=== PATIENT | female | born 1975 | race Caucasian/White ===

== ENCOUNTER → 2020-07-26 11:15 | Outpatient (BNVA) | payer OTHER, SELFPAY | PROVIDERS: Family Provider Family Medicine; PCP Family Medicine; Visit Provider Obstetrics & Gynecology | DX: N89.8 Other specified noninflammatory disorders of vagina (principal); B96.89 Other specified bacterial agents as the cause of diseases classified elsewhere | CPT/HCPCS: 87070; 87205 ==

== ENCOUNTER 2020-08-22 09:43 | Outpatient (CLI) | payer OTHER, SELFPAY ==
--- NOTE | 2020-08-22 09:46 | MM_ITS ---
WS: [id number] SCREENING DIGITAL MAMMOGRAM WITH CAD HISTORY: SCREENING COMPARISON: None available. Bilateral CC and MLO views submitted. Computer aided detection analyzed. Breast composition: There are scattered areas of fibroglandular density. No suspicious masses, microc alcifications or architectural distortion. MM/[place] [id number] IMPRESSION: BI-RADS: 1-Negative FOLLOW UP: 1 Year Follow-up
== END 2020-08-22 09:44 | disposition home or self-care (01) ==
LOC: RADSHAW 09:45
PROVIDERS: PCP Family Medicine; Visit Provider Obstetrics & Gynecology
DX: Z12.31 Encounter for screening mammogram for malignant neoplasm of breast (principal)
CPT/HCPCS: 77067

== ENCOUNTER 2024-01-15 20:05 | Emergency (ER) | payer OTHER, SELFPAY ==
[2024-01-15 20:15] VITALS: BP 136/96; PULSE 85; RESP 14; TEMP 36.9; O2SAT 97
--- NOTE | 2024-01-15 20:20 | XRR_ITS ---
PROCEDURE INFORMATION: Exam: XR Right Hand Exam date and time: 01/15/2024 8:32 PM Age: 48 years old Clinical indication: Injury or trauma; Other: Smashed; Crushing; Hand; Right TECHNIQUE: Imaging protocol: Radiologic exam of the right hand. Views: 3 or more views. COMPARISON: No relevant prior studies available. FINDINGS: Bones/joints: No acute fracture or malalignment. Soft tissues: Unremarkable. XR/XR hand RT min 3V* [id number] IMPRESSION: No acute findings.
--- NOTE | 2024-01-15 20:30 | ED_ITS ---
HPI - Extremity Problem General: Chief complaint: Extremity Injury, Upper Stated complaint: injured Right hand Time Seen by Provider: 01/15/24 20:20 Source: patient Mode of arrival: ambulatory Limitations: no limitations History of Present Illness: 48-year-old female states she had smashe d her right hand and a metal cart just 30 minutes ago. She has bruising along with pain to the middle of her hand she rates her pain an 8 out of 10. She denies any wrist pain denies other injury she has no lacerations. Associated symptoms: Deny chest pain, fever(s) or rash Review of Systems Const: Denies: fever(s), chills, body aches or change in appetite ENMT: Denies: throat pain or dental pain Card: Denies: chest pain Resp: Denies: dyspnea GI: Denies: abdominal pain, nausea, vomiting or diarrhea Musc: Reports: extremity pain; Denies: neck pain or back pain Skin/Breast: Denies: rash Neuro: Denies: headache(s) PFSH ED PFSH: Medical History No pertinent past medical history Patient denies history of: diabetes, asthma, hypertension, seizures, DVT/PE PCP:Dr. Pierre Anxiety Diagnosed in her 30s and managed on as needed Xanax by her primary care provider. Surgical History History of D&C X3 for VIP last in 09/2015----> done for voluntary interruption of at [place]. Family History Denies family history of Colon cancer Ovarian cancer DVT (deep venous thrombosis) Breast cancer Pulmonary embolism Uterine cancer Social History Smoking and tobacco/nicotine status: current every day tobacco/nicotine user cigarettes Packs smoked per day: 0.5 Alcohol intake: current Alcohol intake frequency: holidays/special occasions only Substance/Drug Use: never Current gender identity: Female Physical Exam Const: COMMON NORMALS: no acute distress, patient oriented x3 and healthy appearing HENMT: COMMON NORMALS: normocephalic and atraumatic HEAD & SCALP: normocephalic and atraumatic Neck/C-Spine: COMMON NORMALS: full ROM and supple Chest: COMMONS NORMALS: normal inspection of the chest Resp: COMMON NORMALS: normal respiratory effort Extremity: COMMON NORMALS: full ROM NARRATIVE EXTREMITY EXAM: Contusion swelling to right hand with tenderness no lacerations Neuro: COMMON NORMALS: patient oriented x3, moves all extremities and no focal motor deficits Psych: COMMON NORMALS: mental status grossly normal, Normal thought process present and cooperative THOUGHT PROCESS: Normal thought process present Skin: COMMON NORMALS: no rashes or lesions noted and no wounds GENERAL SKIN EXAM: no rashes or lesions noted Course Vital Signs: Vital signs: Vital Signs Temperature 98.5 F 01/15/24 20:15 Pulse Rate 85 01/15/24 20:15 Respiratory Rate 14 01/15/24 20:15 Blood Pressure 136/96 01/15/24 20:15 Pulse Oximetry 97 01/15/24 20:15 MDM - Extremity (Nontraumatic) Medical Decision Making Patient presents with a right hand contusion x-ray shows no fracture patient stable for discharge she is follow-up with PCP and return if worsening. Medical Records I reviewed the patient's medical records. Lab Data Radiology Impressions Hand X-Ray 01/15/24 20:20 IMPRESSION: No acute findings. All radiology interpretation(s) finalized by discharge Discharge Plan Discharge Patient Disposition: Home Clinical Impression: Contusion of hand, right Condition: Stable Prescriptions: No Action valacyclovir 1 gram tablet 1,000 mg PO TID 7 Days Qty: 21 0RF triamcinolone acetonide 0.1 % cream 1 applic topical TID Qty: 80 0RF Mirena 20 mcg/24 hours (5 yrs) 52 mg intrauterine device INTRAUTERI alprazolam [Xanax] 0.5 mg tablet 0.5 mg PO BID PRN (Reason: anxiety) 30 Days Qty: 60 0RF Discharge Orders: Discharge ED (Routine); Ordered 01/15/24 Ordered By: Little Medrano Referrals: Emmy Pierre DO [Primary Care Provider] - 4-7 days Discharge Diet: Advance as tolerated Discharge Activity: Resume usual activity Patient Instructions: Contusion in Adults (ED) Coding Level of Care Code ED Power Regulator for Naomi Slade
[2024-01-15 21:28] VITALS: BP 137/85; PULSE 79; RESP 16; TEMP 36.4; O2SAT 97
[2024-01-15 21:30] VITALS: BP 137/85; PULSE 79; RESP 16; TEMP 36.4; O2SAT 97
== END 2024-01-15 21:31 | disposition home or self-care (01) ==
PROVIDERS: Emergency Provider Emergency Medicine; PCP Family Medicine
DX: S60.221A Contusion of right hand, initial encounter (principal); F17.210 Nicotine dependence, cigarettes, uncomplicated; W23.0XXA Caught, crushed, jammed, or pinched between moving objects, initial encounter; Y99.0 Civilian activity done for income or pay
CPT/HCPCS: 73130; 99283

== ENCOUNTER → 2024-03-25 07:45 | Outpatient (BNVA) | payer OTHER, SELFPAY | PROVIDERS: PCP Nurse Practitioner Family; Visit Provider Nurse Practitioner | DX: M79.641 Pain in right hand (principal) | CPT/HCPCS: 73130 ==

== ENCOUNTER → 2024-04-08 10:24 | Outpatient (BNVA) | payer OTHER, SELFPAY | PROVIDERS: PCP Nurse Practitioner Family; Visit Provider Obstetrics & Gynecology | DX: Z01.419 Encounter for gynecological examination (general) (routine) without abnormal findings (principal) | CPT/HCPCS: 80053; 84443; 85025; 87624 ==

== ENCOUNTER 2024-04-14 15:40 | Outpatient (CLI) | payer OTHER, SELFPAY ==
--- NOTE | 2024-04-14 16:00 | MR_ITS ---
WS: [id number] MRI RIGHT HAND CONTRAST. COMPARISON: Radiograph 03/25/2024 Multiplanar, multisequence imaging is performed without contrast. No acute fractures or marrow edema. No bone contusion. Normal alignment at the metacarpophalangeal albert ints and the interphalangeal joints. Very minimal residual soft tissue edema from the contusion betwe en the second and third distal metacarpals. No fred abnormalities are along the phalanges. MR/MR hand RT wo con* [id number] IMPRESSION: 1. No fractures or marrow edema. 2. Minimal residual soft tissue contusion between the second and third metacar pals.
== END 2024-04-14 15:41 | disposition home or self-care (01) ==
LOC: RAD 15:41
PROVIDERS: PCP Nurse Practitioner Family; Visit Provider Nurse Practitioner
DX: S69.91XA Unspecified injury of right wrist, hand and finger(s), initial encounter (principal); X58.XXXA Exposure to other specified factors, initial encounter
CPT/HCPCS: 73218

== ENCOUNTER → 2024-04-21 12:22 | Outpatient (BNVA) | payer OTHER, SELFPAY | PROVIDERS: PCP Nurse Practitioner Family; Visit Provider Obstetrics & Gynecology | DX: Z30.430 Encounter for insertion of intrauterine contraceptive device (principal); N88.8 Other specified noninflammatory disorders of cervix uteri; Z97.5 Presence of (intrauterine) contraceptive device | CPT/HCPCS: 76830 ==

== ENCOUNTER 2024-10-01 17:56 | Emergency (ER) | payer OTHER, SELFPAY ==
[2024-10-01 17:58] VITALS: BP 159/96; PULSE 94; TEMP 36.3; O2SAT 97; BMI 22.6
--- NOTE | 2024-10-01 18:23 | XRR_ITS ---
PROCEDURE INFORMATION: Exam: XR Chest Exam date and time: 10/01/2024 6:36 PM Age: 49 years old Clinical indication: Pain; Chest pressure; Additional info: Chest pain TECHNIQUE: Imaging protocol: Radiologic exam of the chest. Views: 1 view. COMPARISON: No relevant prior studies available. FINDINGS: Lungs: Unremarkable. No consolidation. Pleural spaces: Unremarkable. No pleural effusion. No pneumothorax. Heart/Mediastinum: Unremarkable. No cardiomegaly. Bones/joints: Unremarkable. XR/XR chest 1V portable [id number] IMPRESSION: No acute findings.
--- NOTE | 2024-10-01 18:23 | ECG_ITS ---
[facility] Date: 2024-10-01 Pat Name: Bhargavi Kamara Department: Room: Gender: Female Head Correction Officer: : 1975 Requested By: Adrianne Schaefer Order Number: [id number] Wilfrid MD: Gideon Patel M.D. Measurements Intervals [place] Rate: 93 P: 71 IL: 165 QRS: 72 QRSD: 86 T: 58 QT: 335 QTc: 418 Interpretive Statements SINUS RHYTHM POSSIBLE LEFT ATRIAL ENLARGEMENT [-0.1mV P-WAVE IN V1/V2] No previous ECG available for comparison Electronically Signed On 10-03-2024 18:20:09 CDT by Gideon Patel M.D. [id number]
[2024-10-01 18:50] LABS: Basophils # 0.1 10^3/uL (0.0-0.1); Basophils % 1.1 %; Eosinophils # 0.2 10^3/uL (0.0-0.8); Eosinophils % 2.2 %; Hematocrit 46.3 % (36-47); Lymphocytes % 33.8 %; Mean Corpuscular HGB Conc 32.4 g/dL (30-55); Mean Corpuscular Hemoglobin 29.2 pg (27-33); Mean Corpuscular Volume 90.1 fl (85-98); Mean Platelet Volume 9.4 fL (7.4-10.4); Monocytes # 0.7 10^3/uL (0.2-0.9); Monocytes % 7.4 %; Neutrophils # 4.84 10^3/uL (1.8-7.7); Neutrophils % 55.2 %; Nucleated Red Blood Cells % 0 %; Platelet Count 268 10^3/cmm (157-399); Red Blood Count 5.14 10^6/uL (3.85-5.65); Red Cell Distribution Width 13.2 % (12.1-15.1); White Blood Count 8.78 10^3/uL (3.29-11.43)
[2024-10-01 19:04] LABS: Troponin(5th) Baseline < 6 ng/L (0-10)
[2024-10-01 19:06] LABS: Alanine Aminotransferase 20 U/L (0-33); Albumin Level 4.4 g/dL (3.5-5.2); Alkaline Phosphatase 58 U/L (35-105); Anion Gap 15.1 (5-19); Aspartate Amino Transferase 20 U/L (0-32); Blood Urea Nitrogen 8 mg/dL (6-20); Calcium 9.3 mg/dL (8.5-10.5); Carbon Dioxide 27 mmol/L (22-29); Chloride 103 mmol/L (98-107); Globulin 2.2 g/dL (1.3-4.6); Glomerular Filtration Rate 89.3 mL/min (90-130); Glucose 80 mg/dL (65-115); Lipase 34 U/L (13-60); Osmolality Calculated 289 mOsm/kg (285-295); Potassium 4.1 mmol/L (3.5-5.1); Sodium 141 mmol/L (136-145); Total Bilirubin 0.4 mg/dL (0.15-1.2); Total Protein 6.6 g/dL (6.6-8.7)
--- NOTE | 2024-10-01 20:23 | ECG_ITS ---
[facility]: 2024-[facility]01 Pat Name: Bhargavi Kamara Department: Room: Gender: Female Sales Mgr: : 1975 Requested By: Adrianne Schaefer Order Number: [id number] Reading MD: MARY TALBOT Measurements Intervals [place] Rate: 70 P: 69 [place]: 162 QRS: 57 QRSD: 86 T: 57 QT: 389 QTc: 421 Interpretive Statements SINUS RHYTHM Compared to ECG 10/01/2024 18:01:51 No significant changes Electronically Signed On 10-04-2024 22:03:29 CDT by MARY TALBOT [id number] [id number]
--- NOTE | 2024-10-01 21:08 | W.ED.CHESTPA ---
HPI - Chest Pain General: Chief Complaint: Chest Pain Stated Complaint: cp/sob Time Seen by Provider: 10/01/24 18:24 Source: patient Mode of arrival: ambulatory Limitations: no limitations History of Present Illness: Patient is a 49-year-old female who presents today with complaints of intermittent episodes of racing heart rate and left-sided chest pain. She notes that this has been present for a couple days. She cannot identify any alleviating or worsening factors to her symptoms. During episodes, she has recorded heart rates up to the 140s and during those. She feels short of breath with chest pain. The symptoms completely alleviate when her heart rate comes back down. Upon arrival to the emergency department and during my initial assessment with patient her heart rate is in the 80s. Denies syncope/dizziness, abdominal pain, nausea, or vomiting. She is not complaining of any leg swelling or calf pain. Denies any drug use. No new medications. States she has stopped all caffeine use thinking this may help with her symptoms but has not. MD complaint: chest pain and other (racing heart rate) Onset (ago): day(s) Timing of current episode: episodic Onset: during rest Pain location: left chest Pain radiation: none Severity: mild Quality: tightness and dull Relieving factors: nothing Exacerbating factors: nothing Associated symptoms: Reports dyspnea (only during episodes of racing heart rate) and palpitations (feeling like heart is racing/beating fast); Deny abdominal pain, diaphoresis, fever(s), nausea, syncope or vomiting Treatment prior to arrival: none Risk Factors: Coronary artery disease risk factors: smoking history Thoracic aortic dissection risk factors: none Related Data Home Medications ?Medication ?Instructions ?Recorded ?Confirmed levonorgestrel (Mirena) intrauterine 03/09/20 05/15/24 Allergies Allergy/AdvReac Type Severity Reaction Status Date / Time penicillin G Allergy Unknown Rash Verified 10/01/24 18:06 Review of Systems Const: Denies: fever(s), chills or diaphoresis Eyes: Denies: change in vision ENMT: Denies: throat pain Card: Reports: chest pain and palpitations (feeling like heart is racing/beating fast); Denies: irregular heart rhythm, edema, swelling of feet/ankles, lightheadedness, syncope, pre-syncope, dyspnea on exertion, orthopnea, leg pain with exertion or acrocyanosis Resp: Reports: dyspnea (only during episodes of racing heart rate); Denies: wheezing or chest congestion GI: Denies: abdominal pain, nausea, vomiting or hematemesis : Denies: flank pain Musc: Denies: neck pain, back pain, extremity pain or extremity swelling Neuro: Denies: headache(s), numbness in extremities, weakness in extremities, sensory changes, lack of coordination, difficulty walking or dizziness Psych: Reports: anxiety and panic attacks PFSH ED PFSH: Medical History Lateral epicondylitis of right elbow Pain, joint, hand, right Right hand weakness Muscle strain of right upper extremity No pertinent past medical history Patient denies history of: diabetes, asthma, hypertension, seizures, DVT/PE PCP:Dr. Ignacio Mckeon Diagnosed in her 30s and managed on as needed Xanax by her primary care provider. Surgical History History of D&C X3 for VIP last in 09/2015----> done for voluntary interruption of at [place]. Family History Denies family history of Colon cancer Ovarian cancer DVT (deep venous thrombosis) Breast cancer Pulmonary embolism Uterine cancer Social History Smoking and tobacco/nicotine status: current every day tobacco/nicotine user Physical Exam Const: COMMON NORMALS: no acute distress, average body habitus, patient oriented x3, no limitations, healthy appearing, alert and well nourished GENERAL APPEARANCE: cooperative and anxious; not in distress and not diaphoretic Neck/C-Spine: COMMON NORMALS: no JVD Chest: COMMONS NORMALS: normal inspection of the chest and normal palpation of entire chest wall Resp: COMMON NORMALS: normal respiratory effort and clear to auscultation bilaterally AUSCULTATION: clear to auscultation bilaterally Cardio: COMMON NORMALS: no JVD, regular rate and regular rhythm RATE: regular rate RHYTHM: regular rhythm GI: COMMON NORMALS: Normal to inspection, nondistended, normoactive bowel sounds present, Soft to palpation and non-tender PALPATION: Yes Soft to palpation Extremity: COMMON NORMALS: no clubbing, cyanosis or edema, no calf tenderness and no pedal edema GENERAL: Yes normal exam except as noted Neuro: COMMON NORMALS: patient oriented x3 SENSORIUM/ORIENTATION: Yes alert Course Vital Signs: Vital signs: Vital Signs Temperature 97.4 F L 10/01/24 17:58 Pulse Rate 94 10/01/24 17:58 Blood Pressure 159/96 10/01/24 17:58 Pulse Oximetry 97 10/01/24 17:58 Oxygen Delivery Me thod Room Air 10/01/24 17:58 MDM - Chest Pain Medical Decision Making Patient clinically appears no acute distress. Her vital signs are stable. Pulse has been normal during her entire ER stay. Her baseline and repeat EKGs showing normal sinus rhythm. Her baseline and 2-hour troponins are unremarkable. Remainder of blood work is unremarkable. Patient will be set up with an outpatient Holter monitor and recommend follow-up with her primary care provider which she already has a scheduled appointment for later this month. Return to ED precautions discussed. Medical Records I reviewed the patient's medical records. Lab Data I reviewed the patient's lab results. 10/01/24 18:37 10/01/24 18:37 Radiology Impressions Chest X-Ray 10/01/24 18:23 IMPRESSION: No acute findings. Laboratory Results WBC 8.78 10^3/uL (3.29-11.43) 10/01/24 18:37 RBC 5.14 10^6/uL (3.85-5.65) 10/01/24 18:37 Hgb 15.00 g/dL (11.27-16.99) 10/01/24 18:37 Hct 46.3 % (36-47) 10/01/24 18:37 MCV 90.1 fl (85-98) 10/01/24 18:37 MCH 29.2 pg (27-33) 10/01/24 18:37 MCHC 32.4 g/dL (30-55) 10/01/24 18:37 RDW 13.2 % (12.1-15.1) 10/01/24 18:37 Plt Count 268 10^3/cmm (157-399) 10/01/24 18:37 MPV 9.4 fL (7.4-10.4) 10/01/24 18:37 Neut % (Auto) 55.2 % 10/01/24 18:37 Lymph % (Auto) 33.8 % 10/01/24 18:37 [place] % (Auto) 7.4 % 10/01/24 18:37 Eos % (Auto) 2.2 % 10/01/24 18:37 Baso % (Auto) 1.1 % 10/01/24 18:37 Neut # (Auto) 4.84 10^3/uL (1.8-7.7) 10/01/24 18:37 Lymph # (Auto) 3.0 10^3/uL (0.8-4.8) 10/01/24 18:37 [place] # (Auto) 0.7 10^3/uL (0.2-0.9) 10/01/24 18:37 Eos # (Auto) 0.2 10^3/uL (0.0-0.8) 10/01/24 18:37 Baso # (Auto) 0.1 10^3/uL (0.0-0.1) 10/01/24 18:37 Nucleated RBC % (auto) 0 % 10/01/24 18:37 Nucleated RBCs # 0.0 /100WBC 10/01/24 18:37 Sodium 141 mmol/L (136-145) 10/01/24 18:37 Potassium 4.1 mmol/L (3.5-5.1) 10/01/24 18:37 Chloride 103 mmol/L (98-107) 10/01/24 18:37 Carbon Dioxide 27 mmol/L (22-29) 10/01/24 18:37 Anion Gap 15.1 (5-19) 10/01/24 18:37 BUN 8 mg/dL (6-20) 10/01/24 18:37 Creatinine 0.7 mg/dL (0.5-0.9) 10/01/24 18:37 GFR Calculation 89.3 mL/min (90-130) L 10/01/24 18:37 Glucose 80 mg/dL (65-115) 10/01/24 18:37 Calculated Osmolality 289 mOsm/kg (285-295) 10/01/24 18:37 Calcium 9.3 mg/dL (8.5-10.5) 10/01/24 18:37 Total Bilirubin 0.4 mg/dL (0.15-1.2) 10/01/24 18:37 AST 20 U/L (0-32) 10/01/24 18:37 ALT 20 U/L (0-33) 10/01/24 18:37 Alkaline Phosphatase 58 U/L (35-105) 10/01/24 18:37 Troponin T Baseline < 6 ng/L (0-10) 10/01/24 18:37 Troponin T 120 Minute 6.00 ng/L (0-10) 10/01/24 21:00 Delta Troponin T 0.11982 ABS# (0-10) 10/01/24 21:00 Total Protein 6.6 g/dL (6.6-8.7) 10/01/24 18:37 Albumin 4.4 g/dL (3.5-5.2) 10/01/24 18:37 Globulin 2.2 g/dL (1.3-4.6) 10/01/24 18:37 Lipase 34 U/L (13-60) 10/01/24 18:37 All radiology interpretation(s) finalized by discharge Discharge Plan Discharge Patient Disposition: Home Clinical Impression: Intermittent chest pain, Paroxysmal tachycardia Condition: Stable Prescriptions: No Action Mirena 20 mcg/24 hours (5 yrs) 52 mg intrauterine device INTRAUTERI Discharge Orders: Discharge ED (Routine); Ordered 10/01/24 Ordered By: Adrianne Schaefer Referrals: Margie Rollins NP [Primary Care Provider] - Activity Restrictions/Additional Instructions: As we discussed, case management or the [facility] should reach out to you tomorrow or early next week to help set you up with a Holter monitor for further evaluation of symptoms. Please continue to follow-up with primary care as scheduled. He may return to the emergency department at anytime for worsening episodes of racing heart rate, palpitations, shortness of breath, difficulty breathing, dizziness or passing out episodes, or any other concerns you may have. Print Language: Australian Coding Level of Care Code ED Battery Starter for Naomi Slade
[2024-10-01 21:38] LABS: Troponin 5 2HR Delta 0.00001 ABS# (0-10)
[2024-10-01 22:11] VITALS: BP 141/93; PULSE 85; RESP 16; O2SAT 96
--- NOTE | 2024-10-02 07:33 | DCPLANNER ---
messaged heart care for er f/u
== END 2024-10-01 22:12 | disposition home or self-care (01) ==
PROVIDERS: Emergency Provider Physician Assistant; PCP Nurse Practitioner Family
DX: R07.89 Other chest pain (principal); I47.9 Paroxysmal tachycardia, unspecified; Z72.0 Tobacco use
CPT/HCPCS: 36415; 71045; 80053; 83690; 84484; 85025; 93005; 99285

== ENCOUNTER 2024-10-21 13:11 | Outpatient (CLI) | payer OTHER, SELFPAY ==
--- NOTE | 2024-10-21 13:20 | MM_ITS ---
WS: [id number] BILATERAL 3D TOMOSYNTHESIS DIGITAL SCREENING MAMMOGRAPHY WITH CAD CLINICAL INFORMATION: screening HISTORY: Screening mammogram. No current complaints. COMPARISON: 2020 TECHNIQUE: Bilateral CC and MLO views. FINDINGS: The breasts are composed of heterogeneous fibroglandular density tissue, which can limit the detection of small underlying mass lesions. No suspicious mass, asymmetry, calcifications, or architectural distortion. No evidence of malignancy. MM/MM scr tomosynthesis [id number] IMPRESSION: DENSITY: The breasts are heterogeneously dense, which may obscure small masses. BI-RADS: 1 - Negative FOLLOW UP: 1 Year Follow-up Recommend return to annual screening mammography.
== END 2024-10-21 13:12 | disposition home or self-care (01) ==
PROVIDERS: PCP Family Medicine; Visit Provider Family Medicine
DX: Z12.31 Encounter for screening mammogram for malignant neoplasm of breast (principal); R92.333 Mammographic heterogeneous density, bilateral breasts
CPT/HCPCS: 77063; 77067

== ENCOUNTER → 2025-04-05 13:03 | Outpatient (BNVA) | payer OTHER, SELFPAY | PROVIDERS: PCP Family Medicine; Visit Provider Nurse Practitioner | DX: Z01.818 Encounter for other preprocedural examination (principal) | CPT/HCPCS: 36415; 80053; 81001; 85025 ==

== ENCOUNTER 2025-04-27 09:40 | Day surgery (SDC) | payer OTHER, SELFPAY ==
[2025-04-27] VITALS (10 sets, daily range): BP systolic 112–133; BP diastolic 72–91; PULSE 52–63; RESP 16–18; TEMP 36.1–36.4; O2SAT 94–98; BMI 23.5
[2025-04-27 09:54] LABS: OR HCG Qualitative Urine Negative (Negative)
[2025-04-27] MEDS: acetaminophen 1,000 MG/100 ML PIGGYBACK 400 MG IV (10:06)
--- NOTE | 2025-04-27 10:27 | P.HPUD_ITS ---
Surgery/Procedure H&P Update DATE OF PROCEDURE: April 27, 2025 DATE H&P PERFORMED: 04/05/25 H&P UPDATE INFORMATION: I have reviewed H&P completed within last 30 days, I have examined patient prior to procedure, No changes to prior documentation, H&P is in [facility] EMR on date indicated and Risks and benefits of the procedure reviewed PLANNED PROCEDURE: Operation Date: 04/27/25 13:00 Proposed Procedures p Carpal Tunnel Release(Right) - Oralia Ambrose MD Related Problem List Diagnoses 1. Carpal tunnel syndrome on right:
--- NOTE | 2025-04-27 10:32 | ANES.PREANE2 ---
Pre-Anesthetic Assessment Height/Weight: Height 1.63 m Weight 62.142 kg Temp Pulse Resp BP Pulse Ox O2 Del Method 97.0 F L 52 L 18 116/76 98 Room Air 04/27/25 09:55 04/27/25 09:55 04/27/25 09:55 04/27/25 09:55 04/27/25 09:55 04/27/25 09:55 Operation Date: 04/27/25 13:00 Proposed Procedures p Carpal Tunnel Release(Right) - Oralia Ambrose MD Familial anesthetic complications: None Was Beta Zafar taken within 24 hours: N/A Was Clonidine taken within 24 hours: N/A Last intake: Intake Last Liquid Date 04/26/25 Last Liquid Time 23:30 Last Solid Date 04/26/25 Last Solid Time 23:30 Social Alcohol (occassional) and Tobacco Exam alert, oriented x 3, clear to auscultation bilaterally and regular rate & rhythm Airway Mallampati: Class I Dentition: other (some missing) CV/HEM Hypertension Anesthetic Plan ASA status: 2 Anesthesia: General Risk of > 500 ml blood loss (7ml/kg in children): No Medications/Allergies Home Medications ?Medication ?Instructions ?Recorded ?Confirmed ?Last Taken ?Type levonorgestrel (Mirena) intrauterine 03/09/20 04/05/25 04/26/25 10:00 History alprazolam 0.5 mg tablet (Xanax) 0.5 mg PO DAILY PRN anxiety #30 10/19/24 04/26/25 04/26/25 10:00 Rx tabs celecoxib 100 mg capsule (Celebrex) 100 mg PO BID #180 caps 01/11/25 04/26/25 04/26/25 10:00 Rx escitalopram oxalate 10 mg tablet 10 mg PO DAILY #90 tabs 02/02/25 04/26/25 04/26/25 10:00 Rx metoprolol succinate 25 mg 12.5 mg (1/2 x 25 mg) PO BID #90 02/02/25 04/26/25 04/26/25 10:00 Rx tablet,extended release 24 hr tabs Allergies Allergy/AdvReac Type Severity Reaction Status Date / Time penicillin G Allergy Unknown Rash Verified 04/27/25 09:49 Current Medications Generic Name Dose Route Start Last Admin Trade Name Freq PRN Reason Stop Dose Admin Sodium Chloride 1,000 mls @ 30 mls/hr 04/27/25 09:45 04/27/25 10:05 Sodium Chloride 0.9% IV 04/28/25 09:44 30 mls/hr .Q24H MARCELO Administration PFSH Anesthesia Medical History (Updated 04/27/25 @ 10:29 by Oralia Ambrose MD) Lateral epicondylitis of right elbow Pain, joint, hand, right Right hand weakness Muscle strain of right upper extremity No pertinent past medical history Patient denies history of: diabetes, asthma, hypertension, seizures, DVT/PE PCP:Dr. Pierre Anxiety Diagnosed in her 30s and managed on as needed Xanax by her primary care provider. Surgical History History of D&C X3 for VIP last in 09/2015----> done for voluntary interruption of at [place]. Family History Denies family history of Colon cancer Ovarian cancer DVT (deep venous thrombosis) Breast cancer Pulmonary embolism Uterine cancer Social History Smoking and tobacco/nicotine status: current every day tobacco/nicotine user Data Anesthesia Cardiac Studies: Holter Monitor 10/06/24
[2025-04-27] MEDS: ceFAZolin 2,000 mg SDV 2000 MG IVP (12:12)
[2025-04-27] MEDS: BUPivacaine 0.5% INJ 30 mL INJECTION (12:50)
[2025-04-27] MEDS: HYDROcodone-acetaminophen 5-325 mg Tablet 1 TAB PO (13:46)
--- NOTE | 2025-04-27 14:20 | ANE.PACU2 ---
Inpatient post-anesthesia follow up: Airway intact: Yes Vital signs: Temperature 97.5 F Pulse Rate 55 Respiratory Rate 18 Blood Pressure 130/82 Pulse Oximetry 98 Oxygen Delivery Me thod Room Air Oxygen Flow Rate 8 Fraction of Inspir ed Oxygen Hydration adequate: Yes Nausea and vomiting: No Pain level: 1 Mental status: Baseline
--- NOTE | 2025-04-28 13:45 | PM.OP ---
Operative Report Date of procedure: April 27, 2025 Pre-op diagnosis: Right carpal tunnel syndrome Post-op diagnosis: Right carpal tunnel syndrome Post-op findings: Significant compression across the carpal canal with compression across the median nerve Procedure done: Right carpal tunnel release Implants: None Specimens removed/disposition: None Surgeon: Oralia Ambrose MD Towel Rolling Machine Operator: None Estimated blood loss (mL): 2 Tourniquet time (min): 18 (At 250 mmHg) IV fluids (mL): 700 Urine output (mL): 0 (No Byrnes) Complications: None Findings: Tight carpal canal with significant compression across the median nerve Condition: stable Disposition: PACU (Then return to same-day surgery for discharge to home) Brief History: This 50-year-old woman presented today for same-day carpal tunnel release. She has been seen in the clinic and nerve conduction studies confirmed entrapment of the right median nerve at the wrist. There was no radiculopathy noted. The patient was unresponsive to nonoperative measures. She had significant symptoms and difficulty with activities of daily living. For this reason, she was scheduled for a right carpal tunnel release. Procedure: The patient was brought to the operating theater. The patient had a general anesthesia per LMA. ASA 2. The tourniquet was elevated to 250 mmHg for a total tourniquet time of 18 minutes. The patient was also given Ancef 2gm preoperatively. The arm was then prepped and draped with DuraPrep in usual fashion with the arm draped free. A surgical pause was performed. At the time, the surgical pause, we confirmed the site and side of surgery. We also confirmed the patient's identity, appropriate and timely administration of preoperative antibiotics and preoperative surgical markings. An incision was then made along the thenar crease. The incision crossed the wrist joint in a curvilinear fashion. Dissection continued through skin and soft tissues using a scalpel. The palmaris longus was identified along with the transverse carpal ligament. Each of these was released carefully to avoid injury to the median nerve. We were able to dissect gently into the carpal canal which was noted to be quite tight with significant compression across the median nerve. The nerve was visualized and was an hourglass shape. The canal was subsequently palpated to assure there was no bony encroachment upon the canal. The canal was then palpated distally and proximally to assure that my small finger was passed easily without impingement. Finding this to be so, attention was directed to closure. The wound was irrigated with ropivacaine plain. It was then closed with 3-0 nylon in an interrupted mattress fashion. Sterile dressing was then placed consisting of dermabond, Opsite, fluffed fluffs, sterile soft roll, and an Grayson wrap. The tourniquet was released after 18 minutes. There were no complications. There were no specimens. The procedure was well tolerated. Plan is the patient will be discharged home. Related Problem List Diagnoses 1. Carpal tunnel syndrome on right:
== END 2025-04-27 14:20 | disposition home or self-care (01) ==
PROVIDERS: Anesthesiology; PCP Family Medicine; Visit Provider Specialist
PROC: (CPT 64721; principal; 2025-04-27 12:50)
DX: G56.01 Carpal tunnel syndrome, right upper limb (principal); I10 Essential (primary) hypertension; F41.9 Anxiety disorder, unspecified; F17.200 Nicotine dependence, unspecified, uncomplicated
CPT/HCPCS: 64721; 81025; J0131; J0690; J1100; J1885; J2250; J2405; J2704; J3010; J3490; J7030; J9999

== ENCOUNTER 2025-06-11 11:26 | Outpatient (CLI) | payer OTHER, SELFPAY ==
[2025-06-11 12:04] LABS: Hematocrit 45.2 % (36-47); Hemoglobin 14.90 g/dL (11.27-16.99); Mean Corpuscular HGB Conc 33.0 g/dL (30-55); Mean Corpuscular Hemoglobin 30.0 pg (27-33); Mean Corpuscular Volume 90.9 fl (85-98); Nucleated Red Blood Cells % 0 %; Platelet Count 269 10^3/cmm (157-399); Red Blood Count 4.97 10^6/uL (3.85-5.65); White Blood Count 6.83 10^3/uL (3.29-11.43)
[2025-06-11 12:20] LABS: Alanine Aminotransferase 13 U/L (0-33); Albumin Level 4.3 g/dL (3.5-5.2); Alkaline Phosphatase 74 U/L (35-105); Anion Gap 14.0 (5-19); Aspartate Amino Transferase 22 U/L (0-32); Blood Urea Nitrogen 7 mg/dL (6-20); Calcium 9.2 mg/dL (8.5-10.5); Carbon Dioxide 25 mmol/L (22-29); Chloride 105 mmol/L (98-107); Globulin 2.6 g/dL (1.3-4.6); Glucose 105 mg/dL (65-115); Osmolality Calculated 288 mOsm/kg (285-295); Potassium 4.0 mmol/L (3.5-5.1); Sodium 140 mmol/L (136-145); Total Protein 6.9 g/dL (6.6-8.7); Uric Acid 4.8 mg/dL (2.4-5.7)
[2025-06-12 07:49] LABS: Anti-Double Strand DNA AB <1 IU/mL; SM/RNP Antibodies <1.0 NEG AI (<1.0 NEG); SS-B/LA IGG <1.0 NEG AI (<1.0 NEG); Scleroderma Ab(Scl-70) Ab <1.0 NEG AI (<1.0 NEG); Ss-A/Ro Igg <1.0 NEG AI (<1.0 NEG)
== END 2025-06-11 11:27 | disposition home or self-care (01) ==
LOC: LAB 11:30
PROVIDERS: PCP Family Medicine; Visit Provider Nurse Practitioner
DX: M06.4 Inflammatory polyarthropathy (principal)
CPT/HCPCS: 36415; 80053; 84550; 85025; 85651; 86140; 86200; 86225; 86235; 86431